=== PATIENT | male | born 1995 ===

== ENCOUNTER 2017-11-22 07:16 | Emergency (ER) | payer BC, OTHER ==
[2017-11-22 07:31] VITALS: BP 126/78
--- NOTE | 2017-11-22 07:43 | UC ---
Throat Pain/Nasal Mitesh HPI - HPI Summary HPI Summary: 4 DAYS OF WORSENING SORE THROAT, PAIN WITH SWALLOWING, FATIGUE AND OVERALL MALAISE. FEELS ACHY AND HAS A HEADACHE. HAS HAD SUBJECTIVE FEVER AND CHILLS. LYMPH NODES ARE SWOLLEN. RETURNED FROM [place] YESTERDAY AND IS TRAVELING TO [place] IN 2 DAYS. - History of Current Complaint Chief Complaint: UCGeneralIllness Stated Complaint: RESP COMPLAINT THROAT PAIN Time Seen by Provider: 11/22/17 07:34 Hx Obtained From: Patient Onset/Duration: Gradual Onset, Lasting Days, Still Present Severity: Moderate Pain Intensity: 8 Pain Scale Used: 0-10 Numeric Cough: None Associated Signs & Symptoms: Positive: Fever - Allergies/Home Medications Allergies/Adverse Reactions: Allergies Allergy/AdvReac Type Severity Reaction Status Date / Time No Known Allergies Allergy Verified 11/22/17 07:24 PMH/Surg Hx/FS Hx/Imm Hx Previously Healthy: Yes - Surgical History Surgical History: None - Family History Known Family History: Negative: Cardiac Disease, Hypertension, Diabetes - Social History Alcohol Use: Weekly Substance Use Type: Marijuana Smoking Status (MU): Never Smoked Tobacco Review of Systems Constitutional: Fever, Chills, Fatigue ENT: Sore Throat Respiratory: Negative Cardiovascular: Negative Gastrointestinal: Negative Musculoskeletal: Myalgia Neurological: Headache All Other Systems Reviewed And Are Negative: Yes Physical Exam Triage Information Reviewed: Yes Appearance: No Pain Distress, Well-Nourished, Ill-Appearing - MODERATE - APPEARS FATIGUED Vital Signs: Initial Vital Signs Temp 99.7 F 11/22/17 07:25 Pulse 80 11/22/17 07:25 Resp 16 11/22/17 07:25 BP 126/78 11/22/17 07:25 Pulse Ox 97 11/22/17 07:25 Vital Signs Reviewed: Yes Eyes: Positive: Conjunctiva Clear ENT: Positive: Hearing grossly normal, Pharyngeal erythema, TMs normal, Tonsillar swelling Neck: Positive: Supple, Tenderness @ - [employer], Enlarged Nodes @ - [employer] Respiratory Exam: Normal Cardiovascular Exam: Normal Abdomen Description: Positive: Soft Musculoskeletal: Positive: No Edema Neurological: Positive: Alert Psychological: Positive: Normal Response To Family, Age Appropriate Behavior Skin: Negative: rashes Diagnostics - Laboratory Diagnostic Studies Completed/Ordered: STREP NEG Throat Pain/Nasal Course/Dx - Differential Dx/Diagnosis Provider Diagnoses: SUSPECT MONONUCLEOSIS Discharge - Sign-Out/Discharge Documenting (check all that apply): Discharge/Admit/Transfer - Discharge Plan Condition: Stable Disposition: HOME Prescriptions: Magic Mouth Was-ANNELISE/MAAL/LIDO* 5 - 10 ml SWISH SWAL QID PRN #150 ml PRN Reason: Sore Throat predniSONE TAB* [Deltasone TAB*] 50 mg PO DAILY #5 tab Patient Education Materials: Mononucleosis (ED) Referrals: Oliverio Cleveland MD [Primary Care Provider] - If Needed Additional Instructions: STREP TEST NEGATIVE TODAY. SUSPECT MONONUCLEOSIS. WILL CHECK BLOOD COUNT, METABOLIC PANEL, LYME SEROLOGY AND MONO TEST. REST, HYDRATE. PREDNISONE WILL HELP WITH SWELLING AND INFLAMMATION. IBUPROFEN AND MAGIC MOUTHWASH WILL ALSO HELP WITH THE DISCOMFORT. IBUPROFEN MAX DOSE: 600MG (3 TABS) EVERY 6 HRS OR 800MG (4 TABS) EVERY 8 HRS OTC CHLORASEPTIC OR CEPACOL LOZENGES AND/OR IBUPROFEN FOR SORE THROAT NEEDED DO NOT SHARE FOOD, DRINK, UTENSILS - Billing Disposition and Condition Condition: STABLE Disposition: Home
[2017-11-22 10:35] LABS: ABS Basophils 0 10^3/ul (0-0.2); ABS Eosinophils 0 10^3/ul (0-0.6); ABS Lymphocytes 1.3 10^3/ul (1.0-4.8); ABS Monocytes 1.1 10^3/ul (0-0.8); ABS Neutrophils 8.5 10^3/ul (1.5-7.7); ABS Nucleated RBC 0 10^3/ul; Eosinophil % 0.3 % (0-6); Hematocrit 45 % (42-52); Hemoglobin 16.2 g/dl (14.0-18.0); Lymphocyte % 11.5 % (25-47); Mean Corpuscular HGB Conc 36 g/dl (31-36); Mean Corpuscular Hemoglobin 31 pg (27-31); Mean Corpuscular Volume 87 fL (80-94); Mean Platelet Volume 8.1 um3 (7.4-10.4); Nucleated Red Blood Cells % 0.1; Platelet Count 206 10^3/ul (150-450); Red Blood Count 5.19 10^6/ul (4.00-5.40); Red Cell Distribution Width 13 % (10.5-15); White Blood Count 10.9 10^3/ul (3.5-10.8)
[2017-11-22 11:22] LABS: EGFR Non-African American 117.5 (>60)
--- NOTE | 2017-11-23 12:49 | UC ---
- Progress Note Progress Note: I CALLED AND SPOKE WITH THE PATIENT TO ADVISE HIM OF HIS LAB RESULTS. MONOSPOT NEGATIVE. PATIENT REMINDED THAT THERE IS A FAIRLY HIGH FALSE-NEGATIVE RATE EARLY IN THE COURSE OF DISEASE AND THAT HE COULD STILL BE POSITIVE FOR MONO. OF NOTE HIS BILIRUBIN IS ELEVATED. HE REPORTS HE IS FEELING BETTER TODAY AND AGREES TO FOLLOW-UP WITH HIS PCP WHEN HE RETURNS FROM HIS VACATION IN 2 WEEKS FOR REPEAT BLOOD WORK. IN THE MEANTIME HE STATES IF HE BEGINS TO FEEL UNWELL HE WILL FOLLOW-UP WITH THE DOCTOR ON HIS [facility]. - EVON VILLEDA MD. Discharge - Sign-Out/Discharge Documenting (check all that apply): Post-Discharge Follow Up - Discharge Plan Condition: Stable Disposition: HOME Prescriptions: Magic Mouth Was-ANNELISE/MAAL/LIDO* 5 - 10 ml SWISH SWAL QID PRN #150 ml PRN Reason: Sore Throat predniSONE TAB* [Deltasone TAB*] 50 mg PO DAILY #5 tab Patient Education Materials: Mononucleosis (ED) Referrals: Oliverio Cleveland MD [Primary Care Provider] - If Needed Additional Instructions: STREP TEST NEGATIVE TODAY. SUSPECT MONONUCLEOSIS. WILL CHECK BLOOD COUNT, METABOLIC PANEL, LYME SEROLOGY AND MONO TEST. REST, HYDRATE. PREDNISONE WILL HELP WITH SWELLING AND INFLAMMATION. IBUPROFEN AND MAGIC MOUTHWASH WILL ALSO HELP WITH THE DISCOMFORT. IBUPROFEN MAX DOSE: 600MG (3 TABS) EVERY 6 HRS OR 800MG (4 TABS) EVERY 8 HRS OTC CHLORASEPTIC OR CEPACOL LOZENGES AND/OR IBUPROFEN FOR SORE THROAT NEEDED DO NOT SHARE FOOD, DRINK, UTENSILS - Billing Disposition and Condition Condition: STABLE Disposition: Home
--- NOTE | 2017-11-24 10:19 | UC ---
- Progress Note Progress Note: neg lyme no change 11/24/2017 Discharge - Sign-Out/Discharge Documenting (check all that apply): Post-Discharge Follow Up - Discharge Plan Condition: Stable Disposition: HOME Prescriptions: Magic Mouth Was-ANNELISE/MAAL/LIDO* 5 - 10 ml SWISH SWAL QID PRN #150 ml PRN Reason: Sore Throat predniSONE TAB* [Deltasone TAB*] 50 mg PO DAILY #5 tab Patient Education Materials: Mononucleosis (ED) Referrals: Oliverio Cleveland MD [Primary Care Provider] - If Needed Additional Instructions: STREP TEST NEGATIVE TODAY. SUSPECT MONONUCLEOSIS. WILL CHECK BLOOD COUNT, METABOLIC PANEL, LYME SEROLOGY AND MONO TEST. REST, HYDRATE. PREDNISONE WILL HELP WITH SWELLING AND INFLAMMATION. IBUPROFEN AND MAGIC MOUTHWASH WILL ALSO HELP WITH THE DISCOMFORT. IBUPROFEN MAX DOSE: 600MG (3 TABS) EVERY 6 HRS OR 800MG (4 TABS) EVERY 8 HRS OTC CHLORASEPTIC OR CEPACOL LOZENGES AND/OR IBUPROFEN FOR SORE THROAT NEEDED DO NOT SHARE FOOD, DRINK, UTENSILS - Billing Disposition and Condition Condition: STABLE Disposition: Home
== END 2017-11-22 08:35 | disposition home or self-care (01) ==
LOC: UCEAST 07:16
DX: J02.9 Acute pharyngitis, unspecified (principal); R53.83 Other fatigue; R53.81 Other malaise; R51 Headache; R59.0 Localized enlarged lymph nodes; R50.9 Fever, unspecified
CPT/HCPCS: 36415; 80053; 85025; 86308; 86618; 87651; 99212; G0463